=== PATIENT | male | born 1995 | race Caucasian/White ===

== ENCOUNTER 2017-08-05 20:54 | Emergency (ER) | payer BC ==
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
[2017-08-05] MEDS ORDERED: IBUPROFEN 600 MG TAB PO ONE (21:05)
[2017-08-05] MEDS ORDERED: ACETAMINOPHEN 325 MG TAB PO ONE (21:05)
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
[2017-08-05 23:07] VITALS: BP 96/57
== END 2017-08-05 23:15 | disposition home or self-care (01) ==
LOC: ER 21:05
DX: S00.83XA Contusion of other part of head, initial encounter (principal); S09.90XA Unspecified injury of head, initial encounter; S00.03XA Contusion of scalp, initial encounter; Y04.2XXA Assault by strike against or bumped into by another person, initial encounter
CPT/HCPCS: 70450; 99284

== ENCOUNTER → 2017-08-19 | Outpatient (REF) | payer BC ==
[2017-08-19 19:01] LABS: PLATELET COUNT, AUTOMATED 228 K/uL (150-450)
== END ==
PROVIDERS: ATTEND Nurse Practitioner Family
DX: R07.9 Chest pain, unspecified (principal)
CPT/HCPCS: 82040; 82247; 82310; 82374; 82435; 82565; 82947; 84075; 84132; 84155; 84295; 84450; 84460; 84520; 85025; 85379